=== PATIENT | female | born 1995 | race Caucasian/White ===

== ENCOUNTER → 2019-04-15 13:39 | Outpatient (CLI) | payer OTHER, SELFPAY ==
--- NOTE | 2019-04-15 | DI.MRI.S_ITS ---
PROCEDURE: MR ANKLE LT WO CON INDICATIONS: CHRONIC ANKLE PAIN TECHNIQUE: Noncontrast sagittal T1 spin echo and T2 fast spin echo with fat saturation, axial proton density fast spin echo and T2 fast spin echo with fat saturation, coronal T1 spin echo and T2 fast spin echo with fat saturation through the ankle/hindfoot. COMPARISON: [facility], MR, MR ANKLE RT WO CON, 04/15/2019, 13:46. FINDINGS: Image quality: Diagnostic. Bones and joints: No acute fracture, dislocation, or suspicious osseous lesion is identified involving the osseous structures of the midfoot or hindfoot. There is slight increased signal identified along the medial border of the talus, medial cuneiform, and medial malleolus. The ankle mortise is well-maintained. There are no osteochondral defects involving the tibial plafond or talar dome. There may be early degenerative changes of the posterior subtalar joint. No significant joint effusions are appreciated. Medial structures: The deltoid and spring ligaments are intact. However, there is slight increased signal involving the superomedial band of the spring ligament, which is slightly thickened. Mild increased signal involving the deltoid ligament is present. The tibialis posterior tendon demonstrates minimal increased signal along the region of the medial malleolus with a small amount of fluid contained within its corresponding tendon sheath. The flexor hallucis longus and flexor digitorum longus tendons are intact and otherwise unremarkable. The posterior tibial nerve through the tarsal tunnel is grossly unremarkable. Lateral structures: The anterior and posterior distal tibiofibular ligaments are intact. The anterior and posterior talofibular ligaments are also intact. The calcaneofibular ligament is intact. There is slight increased signal involving the peroneus longus tendon along the posterior margin of the lateral malleolus without significant change. The peroneus brevis tendon appears to be within normal limits. Normal fatty signal is seen within the sinus tarsi. Anterior structures: The tibialis anterior, extensor hallucis longus, and extensor digitorum longus tendons appear intact. Posterior and plantar structures: Achilles tendon is intact. Medial and lateral bands of the plantar fascia are of normal thickness. IMPRESSION: 1. Probable sprains of the deltoid and spring ligaments. No full thickness tears. 2. Mild tibialis posterior tendinopathy with corresponding mild tenosynovitis. 3. Possible bone contusions of the medial talus, medial cuneiform, and medial malleolus versus artifact. No fractures are present. 4. Mild peroneus longus tendinopathy. 5. Probable early degenerative changes of the posterior subtalar joint. Dictated by: Rao Watkins M.D. on 04/15/2019 at 14:45 Approved by: Rao Watkins M.D. on 04/15/2019 at 14:52
--- NOTE | 2019-04-15 13:49 | DI.MRI.S_ITS ---
PROCEDURE: MR ANKLE RT WO CON INDICATIONS: CHRONIC ANKLE PAIN TECHNIQUE: Noncontrast sagittal T1 spin echo and T2 fast spin echo with fat saturation, axial proton density fast spin echo and T2 fast spin echo with fat saturation, coronal T1 spin echo and T2 fast spin echo with fat saturation through the ankle/hindfoot. COMPARISON: None. FINDINGS: Image quality: Diagnostic. Bones and joints: No acute fracture, dislocation, or suspicious osseous lesion is identified involving the osseous structures of the right midfoot or hindfoot. There is questionable subtle marrow edema involving the medial border of the navicular and the medial aspect of the medial cuneiform. There is also questionable marrow edema involving the periphery of the medial malleolus. The ankle mortise is well-maintained. There are no osteochondral defects involving the tibial plafond toward the talar dome. Medial structures: The deltoid ligament is intact, but demonstrates mild increased signal. The spring ligament is thickened and demonstrates mild increased signal. No complete tear is evident. There is moderate thickening and mild increased signal involving the tibialis posterior tendon along the medial aspect of the talus. Small amount of fluid is contained within its corresponding tendon sheath. The flexor hallucis longus and flexor digitorum longus tendons are intact and otherwise unremarkable. The posterior tibial nerve to the tarsal tunnel appears to be within normal limits. Lateral structures: The anterior and posterior distal tibiofibular ligaments appear intact. The anterior and posterior talofibular ligaments are intact. The calcaneofibular ligament is intact. The peroneus brevis and peroneus longus tendons appear to be within normal limits. Anterior structures: The tibialis anterior, extensor hallucis longus, and extensor digitorum longus tendons appear intact. Posterior and plantar structures: Achilles tendon is intact. Medial and lateral bands of the plantar fascia are of normal thickness. IMPRESSION: 1. Mild to moderate peroneus tibialis posterior tendinopathy with corresponding mild tenosynovitis. 2. Deltoid and spring ligament sprains. Superimposed scarring is difficult to exclude involving the spring ligament. No complete tears are evident. 3. Possible marrow edema involving the medial border of the navicular, medial cuneiform, and medial malleolus could potentially represent artifact. However, bone contusions could have this appearance as well. Dictated by: Rao Watkins M.D. on 04/15/2019 at 14:40 Approved by: Rao Watkins M.D. on 04/15/2019 at 14:45
== END ==
PROVIDERS: Visit Provider Podiatrist
DX: M25.572 Pain in left ankle and joints of left foot (principal); M25.571 Pain in right ankle and joints of right foot; S93.421A Sprain of deltoid ligament of right ankle, initial encounter; M65.871 Other synovitis and tenosynovitis, right ankle and foot; M65.872 Other synovitis and tenosynovitis, left ankle and foot; G89.29 Other chronic pain
CPT/HCPCS: 73721